=== PATIENT | male | born 1995 | race Two or more races ===

== ENCOUNTER 2022-06-14 07:49 | Emergency (ER) | payer SELFPAY ==
[~2022-06-14] VITALS: Ht 170.2 cm; Wt 81.6 kg
--- NOTE | 2022-06-14 08:00 | NUR ---
DR RALPH AT BEDSIDE
--- NOTE | 2022-06-14 09:00 | NUR ---
RAD AT BEDSIDE FOR XRAY
--- NOTE | 2022-06-14 10:13 | NUR ---
Patient discharged to home in stable condition, picked up family/friend. Written and verbal after care instructions given. Patient verbalizes understanding of instruction.
[2022-06-14 10:15] VITALS: BP 126/77
== END 2022-06-14 10:13 | disposition home or self-care (01) ==
LOC: ER 07:53
DX: S09.90XA Unspecified injury of head, initial encounter (principal); S20.212A Contusion of left front wall of thorax, initial encounter; Y04.2XXA Assault by strike against or bumped into by another person, initial encounter; Y93.89 Activity, other specified; Y92.89 Other specified places as the place of occurrence of the external cause; Y99.8 Other external cause status
CPT/HCPCS: 70450-TC; 71100-TC; 73590-TC; 82962-TC